=== PATIENT | female | born 1935 | race Caucasian/White ===

== ENCOUNTER 2017-05-30 19:34 | Emergency (ER) | payer OTHER ==
[~2017-05-30] VITALS: Ht 170.2 cm; Wt 72.6 kg
[~2017-05-30 19:34] MED LIST: APAP500 PO; BP MEDS; COUMADIN 5 MG TA5 M1 PO; DARVOCET-N 1001 EACH PO; KEFLEX500 MG PO; LANOXIN 0.120.125 M1 PO; LANOXIN 0.250.25 M1; LIPITOR20 MG PO; LOPRESSOR50 PO; MACROBID 100 M100 M1 PO; METOPROLOL SUCC25 M1; NORCO 5-325 TA1 EACH PO; TYLENOL325 MG PO; VITAMIN D400 UNI1 PO
[2017-05-31 05:43] VITALS: BP 129/77
== END 2017-05-31 05:44 | disposition home or self-care (01) ==
LOC: ER 19:34
DX: S61.512A Laceration without foreign body of left wrist, initial encounter (principal); I10 Essential (primary) hypertension; Z90.710 Acquired absence of both cervix and uterus; Z95.0 Presence of cardiac pacemaker; Z95.4 Presence of other heart-valve replacement; Z87.891 Personal history of nicotine dependence; Z88.2 Allergy status to sulfonamides; Z88.8 Allergy status to other drugs, medicaments and biological substances; W26.8XXA Contact with other sharp object(s), not elsewhere classified, initial encounter; Y93.89 Activity, other specified; Y92.89 Other specified places as the place of occurrence of the external cause; Y99.8 Other external cause status

== ENCOUNTER 2017-11-19 17:55 | Emergency (ER) | payer OTHER ==
[~2017-11-19] VITALS: Ht 177.8 cm; Wt 77.1 kg
[2017-11-19] MEDS ORDERED: PREDNISONE 20 M20 MG PO (18:40)
[2017-11-19] MEDS ORDERED: TRAMADOL 50 MG50 MG PO (18:40)
== END 2017-11-19 19:05 | disposition home or self-care (01) ==
LOC: ER 17:55
DX: M75.82 Other shoulder lesions, left shoulder (principal); M43.6 Torticollis; M19.90 Unspecified osteoarthritis, unspecified site; M81.0 Age-related osteoporosis without current pathological fracture; I10 Essential (primary) hypertension; Z90.710 Acquired absence of both cervix and uterus; Z88.2 Allergy status to sulfonamides; Z88.8 Allergy status to other drugs, medicaments and biological substances; Z87.891 Personal history of nicotine dependence

== ENCOUNTER 2018-03-20 11:19 | Emergency (ER) | payer OTHER ==
[~2018-03-20] VITALS: Ht 177.8 cm; Wt 72.6 kg
--- NOTE | ~2018-03-20 | EKG ---
[address] [address] ELECTROCARDIOGRAM REPORT Name: KORINTAQUERIAWENDY McgovernFRANCISJESSICA Room #: [facility]CENT[facility]oni#: [id number] Admission: 03/20/18 Attend Phys: Discharge: 03/20/18 Date of : 35 Report #: [id number] THIS REPORT FOR: //name// [facility] ED Test Date: 2018-03-20 Test Time: 11:54:00 Pat Name: LADONNA HANCOCK Department: Room: Gender: F [employer] Tender: earle : 1935 Requested By: Elo Tyson Order Number: [id number] MD: Abdiel Kwon Measurements Intervals [place] Rate: 75 P: [place]: QRS: 72 QRSD: 119 T: 59 QT: 363 QTc: 406 Interpretive Statements Afib/flut and V-paced complexes No further rhythm analysis attempted due to paced rhythm Probable left ventricular hypertrophy Baseline wander in lead(s) V6 Compared to ECG 01/01/2015 20:43:57 Myocardial infarct finding no longer present Electronically Signed On 03-21-2018 7:49:04 CDT by Abdiel Kwon [email or web address] <ELECTRONICALLY SIGNED> By: Abdiel Kwon MD 03/21/18 [id number] [id number] Abdiel Kwon MD /EPI
[~2018-03-20 11:19] MED LIST changes: +PREDNISONE 20 M20 MG PO; +TRAMADOL 50 MG50 MG PO
[2018-03-20] MEDS ORDERED: CARVEDILOL3.125 MG PO (11:41)
[2018-03-20 12:23] LABS: HEMATOCRIT 34.8 % (37.0-47.0); HEMOGLOBIN 11.8 gm/dL (12.0-15.0); MCH 30.8 pg (26.0-34.0); MCHC 33.8 g/dL (28.0-37.0); MCV 91.1 fL (80.0-100.0); RBC 3.83 mil/uL (4.20-5.00); RDW 14.3 % (10.5-14.5)
[2018-03-20 12:33] LABS: ANION GAP 6 mmol/L (7-16); BUN 14 mg/dL (7-18); CALCIUM 9.9 mg/dL (8.5-10.1); CHLORIDE 107 mmol/L (98-107); CO2 28 mmol/L (21-32); CREATININE 0.7 mg/dL (0.6-1.0); GLUCOSE 80 mg/dL (74-106); SODIUM 141 mmol/L (136-145)
[2018-03-20 12:41] LABS: TROPONIN-I < 0.04 ng/mL (<0.06)
[2018-03-20] MEDS ORDERED: HYDROCODONE-AP1 EAC6 PO (12:47)
[2018-03-20 13:01] VITALS: BP 126/49
== END 2018-03-20 13:02 | disposition home or self-care (01) ==
LOC: ER 11:19
PROVIDERS: Physician Assistant
DX: S46.911A Strain of unspecified muscle, fascia and tendon at shoulder and upper arm level, right arm, initial encounter (principal); I10 Essential (primary) hypertension; F17.210 Nicotine dependence, cigarettes, uncomplicated; Z90.89 Acquired absence of other organs; Z88.2 Allergy status to sulfonamides; Z88.8 Allergy status to other drugs, medicaments and biological substances; Z91.018 Allergy to other foods; X58.XXXA Exposure to other specified factors, initial encounter; Y92.89 Other specified places as the place of occurrence of the external cause; Y93.89 Activity, other specified; Y99.8 Other external cause status

== ENCOUNTER 2018-08-21 19:36 | Emergency (ER) | payer OTHER ==
[~2018-08-21] VITALS: Ht 175.3 cm; Wt 68.0 kg
[~2018-08-21 19:36] MED LIST changes: +CARVEDILOL3.125 MG PO; +HYDROCODONE-AP1 EAC6 PO
[2018-08-21 19:45] VITALS: BP 133/70
== END 2018-08-21 21:44 | disposition left against medical advice (07) ==
LOC: ER 19:36
DX: S16.1XXA Strain of muscle, fascia and tendon at neck level, initial encounter (principal); H17.89 Other corneal scars and opacities; H92.03 Otalgia, bilateral; I10 Essential (primary) hypertension; Z95.4 Presence of other heart-valve replacement; Z87.891 Personal history of nicotine dependence; Z88.2 Allergy status to sulfonamides; Z88.8 Allergy status to other drugs, medicaments and biological substances; X58.XXXA Exposure to other specified factors, initial encounter; Y93.89 Activity, other specified; Y92.89 Other specified places as the place of occurrence of the external cause; Y99.8 Other external cause status

== ENCOUNTER 2018-09-01 19:16 | Emergency (ER) | payer OTHER ==
[~2018-09-01] VITALS: Ht 177.8 cm; Wt 68.0 kg
[2018-09-01] MEDS ORDERED: LIPITOR (19:36)
[2018-09-01] MEDS ORDERED: BLOOD PRESSURE (19:36)
[2018-09-01 20:42] LABS: INR 2.5; PROTIME 26.3 Seconds (9.3-11.4)
== END 2018-09-01 21:37 | disposition home or self-care (01) ==
LOC: ER 19:16
PROVIDERS: Emergency Medicine
DX: S51.811A Laceration without foreign body of right forearm, initial encounter (principal); I10 Essential (primary) hypertension; Z87.891 Personal history of nicotine dependence; Z88.8 Allergy status to other drugs, medicaments and biological substances; Z88.2 Allergy status to sulfonamides; Z95.0 Presence of cardiac pacemaker; Z90.710 Acquired absence of both cervix and uterus; W54.8XXA Other contact with dog, initial encounter; Y92.89 Other specified places as the place of occurrence of the external cause; Y93.89 Activity, other specified; Y99.8 Other external cause status

== ENCOUNTER 2018-12-20 15:16 | Emergency (ER) | payer OTHER ==
[~2018-12-20] VITALS: Ht 175.3 cm; Wt 68.0 kg
[~2018-12-20 15:16] MED LIST changes: +BLOOD PRESSURE; +LIPITOR
[2018-12-20] MEDS ORDERED: AMLODIPINE BESY10 MG PO (17:26)
[2018-12-20] MEDS ORDERED: ALEVE220 MG PO (17:46)
[2018-12-20 18:14] VITALS: BP 124/69
== END 2018-12-20 18:19 | disposition home or self-care (01) ==
LOC: ER 15:16
DX: S42.035A Nondisplaced fracture of lateral end of left clavicle, initial encounter for closed fracture (principal); I10 Essential (primary) hypertension; Z90.710 Acquired absence of both cervix and uterus; Z98.890 Other specified postprocedural states; Z88.2 Allergy status to sulfonamides; Z87.891 Personal history of nicotine dependence; Z88.8 Allergy status to other drugs, medicaments and biological substances; X58.XXXA Exposure to other specified factors, initial encounter; Y93.89 Activity, other specified; Y92.89 Other specified places as the place of occurrence of the external cause; Y99.8 Other external cause status

== ENCOUNTER 2019-12-25 19:47 | Emergency (ER) | payer OTHER ==
[~2019-12-25] VITALS: Ht 177.8 cm; Wt 68.0 kg
[~2019-12-25 19:47] MED LIST changes: +ALEVE220 MG PO; +AMLODIPINE BESY10 MG PO
[2019-12-25] MEDS ORDERED: NORCO 5-325 TA1 EAC1 PO (21:25)
[2019-12-25 21:47] VITALS: BP 148/72
== END 2019-12-26 00:57 | disposition home or self-care (01) ==
LOC: ER 19:47
DX: S69.91XA Unspecified injury of right wrist, hand and finger(s), initial encounter (principal); I10 Essential (primary) hypertension; Z87.891 Personal history of nicotine dependence; Z88.2 Allergy status to sulfonamides; Z88.8 Allergy status to other drugs, medicaments and biological substances; Z95.0 Presence of cardiac pacemaker; W22.8XXA Striking against or struck by other objects, initial encounter; Y93.89 Activity, other specified; Y92.89 Other specified places as the place of occurrence of the external cause; Y99.8 Other external cause status